=== PATIENT | female | born 2000 | race Hispanic/Latino ===

== ENCOUNTER 2021-03-18 11:13 | Emergency (ER) | payer OTHER ==
[~2021-03-18] VITALS: Ht 160 cm; Wt 56.7 kg
[2021-03-18 11:23] VITALS: BP 114/60
[2021-03-18 11:28] VITALS: BP 114/60
[2021-03-18] MEDS ORDERED: MOTRIN PO STA (11:58)
--- NOTE | 2021-03-18 12:03 | ER.PDOC ---
General Chief Complaint: Extremities Stated Complaint: LEFT SHOULDER INJURY Time seen by MD: 11:45 Source: patient Exam Limitations: no limitations History of Present Illness Initial Comments Patient is 20-year-old woman who presents the emergency department with chief complaint of pain in her left shoulder. Patient states she was lifting weights when the weight got too heavy and she hyperextended her shoulder. She states that there was someone in the weight room who stated she was a safety trainer and helped her with her arm. She states she thinks she dislocated her shoulder and that the person helped her reduce the dislocation. She reports pain, swelling of the left shoulder that is worse on palpation or range of motion. She states she is not taking any medication for this pain. She states the injury happened about an hour prior to arrival. She denies any other injuries. Occurred: just prior to arrival Recent Injury: Yes Where: other (Td) Severity: moderate Exacerbated By: movement of Relieved By: rest Quality: pain, swelling, tenderness Allergies: Coded Allergies: Penicillins (Verified Allergy, Unknown, Rash, 03/18/21) Past Medical History Medical History: no pertinent history Surgical History: no surgical history Family History Significant Family History: no pertinent family hx Social History Smoking: non-smoker Alcohol Use: none Drug Use: none Review of Systems Musculoskeletal: joint pain, joint swelling, muscle pain Skin: denies change in color Psychiatric/Neurological: denies numbness, denies weakness All Other Systems: Reviewed and Negative Physical Exam General Appearance: alert, no distress Upper Extremity: no edema, nml ROM, joints nml, tenderness (Tenderness diffusely over the left shoulder.), swelling, limited ROM Skin: color nml, warm/dry Vascular: no vascular compromise Neuro/Psych: sensation nml, motor nml Central Exam: oriented X3, CN's nml as tested, nml speech, nml cognition, nml mood/affect EENT: eyes nml inspection, ENT nml inspection, pharynx nml Neck/Back: nml inspection Respiratory: no resp distress, breath sounds nml CVS: reg rate & rhythm, heart sounds nml Abdomen: non-tender, no organomegaly, nml bowels sounds Results/Orders Results/Orders Orders - KARIME AGUIRRE MD Xr Shoulder Lt 2v (03/18/21 11:58) Ibuprofen (Motrin) (03/18/21 11:58) Ibuprofen (Motrin) (03/18/21 12:10) Vital Signs Date Time Temp Pulse Resp B/P (MAP) Pulse Ox O2 Delivery O2 Flow Rate FiO2 03/18/21 11:28 98.4 68 16 114/60 (78) 98 Room Air 03/18/21 11:23 98.4 68 16 03/18/21 11:23 98.4 68 16 98 Administered Medications Medications (Trade) Dose Ordered Sig/Mary Route PRN Reason Start Time Stop Time Status Last Admin Dose Admin Ibuprofen (Motrin) 800 mg STAT STAT PO 03/18/21 11:58 03/18/21 12:00 DC 03/18/21 12:27 800 MG Progress Progress Patient received ibuprofen 800 mg orally with some improvement in her pain. X- ray left shoulder shows no fracture dislocation per the radiologist. I did view the patient's images. Patient had a sling applied to her left shoulder by the nurse. She is neurovascular intact after the sling was applied. Impression she has left shoulder Sprain.She does not appear to have fracture, dislocation, arterial injury, nerve injury, amputation, septic joint, necrotizing fasciitis, burn, or other serious etiology of her symptoms. Patient be discharged home. ER DEPART Departure Time of Disposition: 12:50 Disposition: 01 HOME / SELF CARE / HOMELESS Impression: Primary Impression: Sprain of left shoulder Condition: Stable Additional Instructions: Return immediately if severe pain, numbness or weakness of the arm, or if arm is cold and pale. Rest, cool compresses for 20 minutes 3 times a day for the first 3 days. Then warm compresses. Wear sling for comfort. Ibuprofen 800 mg by mouth every 8 hours as needed for pain or swelling [id number]. Acetaminophen 1000 mg by mouth every 6 hours as needed for pain [id number]. Follow-up with primary care physician in 1 week. Duration or Time Spent with Pa: 15 min Return to Work/School Can a patient return to work?: Yes Can a patient return to school: Yes (No use of left arm for 1 week) Problem Qualifiers Primary Impression: Sprain of left shoulder Encounter type: initial encounter Shoulder sprain type: unspecified sprain Qualified Codes: S43.402A - Unspecified sprain of left shoulder joint, initial encounter KARIME AGUIRRE MD Mar 18, 2021 12:03
[2021-03-18] MEDS ORDERED: MOTRIN ONE (12:10)
[2021-03-18 12:30] VITALS: BP 120/65
--- NOTE | 2021-03-18 12:31 | DIREP ---
PROCEDURE:XRAY SHOULDER MIN 2 VWS-LT COMPARISON:None. INDICATIONS:pain FINDINGS: BONES:Normal. JOINTS:Normal glenohumeral and acromioclavicular joints. No evidence for dislocation. SOFT TISSUES:Normal. OTHER:Normal. CONCLUSION:Normal examination. Dictated by: James Azevedo MD on 03/18/2021 at 12:29 PM
== END 2021-03-18 13:00 | disposition home or self-care (01) ==
LOC: ER 11:13
DX: S43.402A Unspecified sprain of left shoulder joint, initial encounter (principal); Z79.1 Long term (current) use of non-steroidal anti-inflammatories (NSAID); Z88.0 Allergy status to penicillin; X58.XXXA Exposure to other specified factors, initial encounter; Y93.89 Activity, other specified; Y92.89 Other specified places as the place of occurrence of the external cause; Y99.8 Other external cause status
CPT/HCPCS: 99283; 73030-LT